=== PATIENT | male | born 1955 | race Caucasian/White ===

== ENCOUNTER 2017-02-12 11:21 | Emergency (ER) | payer MEDICARE, BC ==
[~2017-02-12] VITALS: Ht 198.1 cm; Wt 97.5 kg
--- NOTE | 2017-02-12 11:22 | NUR ---
PT AMBULATORY TO ER BED 12. C/O URINARY RETENSION/ URGENCY. UNABLE TO URINATE SINCE YESTERDAY. PT STATES ITS BEEN BOTHERING HIM X 2 WEEKS BUT DENIES HEMATURIA. GOWNED AND PLACED ON MONITOR. STABLE VITALS. AWAITING MD FLORES.
--- NOTE | 2017-02-12 11:25 | NUR ---
DR COTTON AT BEDSIDE FOR EVAL.
[2017-02-12] MEDS ORDERED: LIDOCAINE 2% JEL UROJET 10 ML MM ONE ×2 (11:41→12:00)
[2017-02-12] MEDS ORDERED: HYDROMORPHONE INJ 2 MG/ML DISP.SYRIN IV ONE (12:30)
[2017-02-12] MEDS ORDERED: ONDANSETRON HCL/PF 4 MG/2 ML VIAL IVP ONE (12:30)
[2017-02-12] MEDS ORDERED: ONDANSETRON HCL/PF 4 MG/2 ML VIAL ONE (12:35)
[2017-02-12] MEDS ORDERED: HYDROMORPHONE INJ 2 MG/ML DISP.SYRIN ONE ×2 (12:36→13:18)
[2017-02-12 12:40] LABS: BASOPHILS # (AUTO) 0.1 /CMM (0.0-0.2); BASOPHILS % (AUTO) 0.7 % (0.0-2.0); EOSINOPHILS # (AUTO) 0.4 /CMM (0.0-0.7); EOSINOPHILS % (AUTO) 2.7 % (0.0-6.0); HEMATOCRIT 42 % (39-51); HEMOGLOBIN 14.1 g/dL (13.5-17.5); LYMPHOCYTES # (AUTO) 2.5 /CMM (0.8-4.8); LYMPHOCYTES % (AUTO) 18.8 % (20.0-44.0); MEAN CORPUSCULAR HEMOGLOBIN 31 PG (26.0-33.0); MEAN CORPUSCULAR HGB CONC 34 g/dl (31.0-36.0); MEAN CORPUSCULAR VOLUME 91 fL (80-96); MONOCYTES # (AUTO) 0.7 /CMM (0.1-1.30); MONOCYTES % (AUTO) 5.1 % (2.0-12.0); NEUTROPHILS # (AUTO) 9.5 /CMM (1.8-8.9); NEUTROPHILS % (AUTO) 72.7 % (43.0-81.0); PLATELET COUNT (AUTO) 262 /CMM (150-450); RDW COEFFICIENT OF VARIATION 13.6 (11.5-15.0); RED BLOOD CELL COUNT(AUTO) 4.64 MIL/uL (4.5-6.0); WHITE BLOOD COUNT (AUTO) 13.2 K/uL (4.3-11.0)
[2017-02-12 12:41] VITALS: BP 133/87
[2017-02-12 12:51] LABS: CALCIUM, SERUM 8.8 mg/dL (8.5-10.1); CREATININE 1.1 mg/dL (0.6-1.3); POTASSIUM 4.1 mmol/L (3.5-5.1)
[2017-02-12 12:54] LABS: INR 0.93 (0.87-1.13); PROTHROMBIN TIME 9.7 SECS (9.5-12.7)
--- NOTE | 2017-02-12 13:27 | NUR ---
DR MITCH ELLIS CALLED [phone] FOR UROLOGY CONSULT. ON A PHONE WITH DR COTTON.
[2017-02-12] MEDS ORDERED: HYDROMORPHONE 1 MG/1 ML DISP.SYRIN IV ONE (13:30)
--- NOTE | 2017-02-12 13:40 | NUR ---
ASPIRATED APPROX 1300CC OF BLOOD TINGED URINE W/ BLOOD CLOTS. STILL UNABLE TO IRRIGATE. DR COTTON AWARE.
--- NOTE | 2017-02-12 13:45 | NUR ---
PT TO RADIOLOGY FOR ABDOMINAL/PELVIC CT SCAN VIA [facility].
--- NOTE | 2017-02-12 13:53 | NUR ---
CALLED [facility] FOR TRANSPORT, ETA OF 10 MINS WAS GIVEN.
--- NOTE | 2017-02-12 14:23 | NUR ---
PT WILL BE TRANSFERED TO [facility]. STABLE CONDITION.
== END 2017-02-12 14:30 | disposition short-term general hospital (02) ==
LOC: ER 11:23
DX: R33.9 Retention of urine, unspecified (principal); R31.0 Gross hematuria; Z85.820 Personal history of malignant melanoma of skin; Z90.81 Acquired absence of spleen
CPT/HCPCS: 36415; 71250-TC; 80048-TC; 85025-TC; 85730-TC; A4606; J1170; J2405; J3490; Z7610

== ENCOUNTER 2017-07-30 10:28 | Outpatient (CLI) | payer MEDICARE, BC | END 2017-07-30 23:59 | disposition home or self-care (01) | LOC: RAD 10:28 | DX: Z01.818 Encounter for other preprocedural examination (principal); C43.9 Malignant melanoma of skin, unspecified; J98.4 Other disorders of lung | CPT/HCPCS: 71046 ==

== ENCOUNTER 2017-09-28 17:39 | Emergency (ER) | payer MEDICARE, BC ==
[~2017-09-28] VITALS: Ht 188 cm; Wt 98.9 kg
[2017-09-28 17:54] VITALS: BP 126/76
--- NOTE | 2017-09-28 18:00 | NUR ---
AAOX3, C/O URINARY RETENTION S/P PROSTATE BIOPSY TODAY, LAST TIME HE URINATE 1PM "I FEEL THE URGE TO PEE BUT I CAN'T PEE". SKIN IS WARM AND DRY. RESP IS EVEN AND UNLABORED WITH NAD NOTED. AWAITING MD FOR EVAL.
[2017-09-28] MEDS ORDERED: LIDOCAINE 2% JEL UROJET 10 ML MM ONE ×2 (18:08→18:30)
[2017-09-28 18:52] LABS: APPEARANCE,URINE Slightly Cloudy (CLEAR); BILIRUBIN,URINE Negative (NEGATIVE); BLOOD, URINE Trace-intact Ery/uL (NEGATIVE); COLOR,URINE Light yellow (YELLOW); KETONES,URINE Negative (NEGATIVE); LEUKOCYTE ESTERASE ,URINE Negative (NEGATIVE); NITRITE, URINE Negative (NEGATIVE); PH,URINE 5.5 (5.0-8.0); PROTEIN,URINE Negative (NEGATIVE); UGLUCOSE Negative (NEGATIVE); UROBILINOGEN,URINE 0.2 EU/dL (0.2)
[2017-09-28 18:53] LABS: BACTERIA,URINE Rare /HPF (None Seen); SQUAMOUS EPITHELIAL CELL,UR Few /HPF (None Seen); WBC,URINE NONE SEEN /HPF (0-3)
--- NOTE | 2017-09-28 19:15 | NUR ---
REPORT GIVEN TO SHEILA KEY FOR [facility].
== END 2017-09-28 19:47 | disposition home or self-care (01) ==
LOC: ER 17:43
DX: R33.9 Retention of urine, unspecified (principal); C79.2 Secondary malignant neoplasm of skin; Z85.820 Personal history of malignant melanoma of skin
CPT/HCPCS: 51702; 81001; 99284; A4606; J3490; 81000-TC; Z7610

== ENCOUNTER 2017-10-13 22:59 | Emergency (ER) | payer MEDICARE, BC ==
[~2017-10-13] VITALS: Ht 198.1 cm; Wt 97.5 kg
[2017-10-13 23:08] VITALS: BP 134/78
[2017-10-14] LABS: APPEARANCE,URINE CLOUDY (CLEAR); BILIRUBIN,URINE NEGATIVE (NEGATIVE); BLOOD, URINE 3+ Ery/uL (NEGATIVE); COLOR,URINE YELLOW (YELLOW); KETONES,URINE NEGATIVE (NEGATIVE); LEUKOCYTE ESTERASE ,URINE 1+ (NEGATIVE); NITRITE, URINE POSITIVE (NEGATIVE); PROTEIN,URINE 3+ mg/dl (NEGATIVE); UGLUCOSE NEGATIVE (NEGATIVE); UROBILINOGEN,URINE 0.2 EU/dL (0.2)
[2017-10-14 00:06] LABS: BACTERIA,URINE Many /HPF (None Seen); RBC,URINE 21-50 /HPF (0-2); SQUAMOUS EPITHELIAL CELL,UR Few /HPF (None Seen); WBC,URINE TOO NUMEROUS TO COUN /HPF (0-3)
[2017-10-14] MEDS ORDERED: PHENAZOPYRIDINE HCL 200 MG TABLET PO ONE (00:30)
[2017-10-14] MEDS ORDERED: NITROFURANTOIN/NITROFURAN MAC 100 MG CAPSULE PO ONE (00:30)
[2017-10-14] MEDS ORDERED: CEFTRIAXONE 1 G VIAL IM ONE (00:30)
[2017-10-14] MEDS ORDERED: NITROFURANTOIN/NITROFURAN MAC 100 MG CAPSULE ONE (00:38)
[2017-10-14] MEDS ORDERED: LIDOCAINE /MPF 1% VIAL 5 ML VIAL ONE (00:38)
[2017-10-14] MEDS ORDERED: CEFTRIAXONE 1 G VIAL ONE (00:38)
[2017-10-14] MEDS ORDERED: PHENAZOPYRIDINE HCL 200 MG TABLET ONE (00:39)
--- NOTE | 2017-10-14 01:00 | NUR ---
LEG BAG ATTACHED PER MD'S ORDERS. INSTRUCTIONS GIVEN TO PT. PT AMBULATED OUT WITH STEADY GAIT.
== END 2017-10-14 00:59 | disposition home or self-care (01) ==
LOC: ER 23:03
DX: N30.90 Cystitis, unspecified without hematuria (principal); R33.9 Retention of urine, unspecified; Z85.820 Personal history of malignant melanoma of skin; Z90.89 Acquired absence of other organs
CPT/HCPCS: 81000-TC; 87086-TC; 87186-TC; A4606; J0696; J3490; Z7610